=== PATIENT | female | born 1960 | race Caucasian/White ===

== ENCOUNTER 2022-03-29 14:37 | Outpatient (CLI) | payer OTHER | END 2022-03-29 14:38 | disposition home or self-care (01) | LOC: BICMAMMO 14:37 | PROVIDERS: ATTEND Surgery | DX: N63.15 Unspecified lump in the right breast, overlapping quadrants (principal) | CPT/HCPCS: 19083; 77066; G0279 ==

== ENCOUNTER 2022-04-27 09:52 | Day surgery (SDC) | payer OTHER ==
[2022-04-25 16:09] VITALS: BMI 28.4
[2022-04-27] MEDS ORDERED: fentaNYL Citrate/PF 100 MCG/2 ML SYRINGE ONE (10:55)
[2022-04-27] MEDS ORDERED: Isosulfan Blue 50 MG/5 ML VIAL ONE (12:00)
[2022-04-27] MEDS ORDERED: Bupivacaine/Epinephrine 0.25% 30 ML VIAL ONE ×2 (12:00→14:48)
[2022-04-27] MEDS ORDERED: Acetaminophen 500 MG TAB ONE (12:19)
[2022-04-27] MEDS ORDERED: CEFAZOLIN 2 GM VIAL ONE (12:19)
[2022-04-27] MEDS ORDERED: Sodium Chloride 0.9% 100 ML ONE (12:19)
[2022-04-27] MEDS ORDERED: Lidocaine 1% MPF 2 ML VIAL ONE (12:47)
[2022-04-27] MEDS ORDERED: Ondansetron PF 4 MG/2 ML Vial ONE ×2 (12:47→15:41)
[2022-04-27] MEDS ORDERED: Ketorolac Tromethamine 30 MG/ML VIAL ONE (12:47)
[2022-04-27] MEDS ORDERED: ePHEDrine 50 MG/ML VIAL ONE (12:47)
[2022-04-27] MEDS ORDERED: PROPOFOL 200 MG/20 ML VIAL ONE (12:47)
[2022-04-27] MEDS ORDERED: Dexamethasone 20 MG/5 ML VIAL ONE (12:47)
[2022-04-27] MEDS ORDERED: Promethazine HCl 25 MG/ML VIAL ONE (15:56)
[2022-04-27] MEDS ORDERED: Metoclopramide HCl 10 MG/2 ML VIAL ONE (17:10)
== END 2022-04-27 17:27 | disposition home or self-care (01) ==
LOC: SDC 09:52
PROVIDERS: ATTEND Surgery
PROC: 07B50ZX Excision of Right Axillary Lymphatic, Open Approach, Diagnostic (ICD-10-PCS; principal; 2022-04-27)
PROC: 0HBT0ZZ Excision of Right Breast, Open Approach (ICD-10-PCS; principal; 2022-04-27)
DX: C50.811 Malignant neoplasm of overlapping sites of right female breast (principal); E89.0 Postprocedural hypothyroidism; I10 Essential (primary) hypertension; E11.9 Type 2 diabetes mellitus without complications; Z17.0 Estrogen receptor positive status [ER+]; Z79.84 Long term (current) use of oral hypoglycemic drugs; Z79.890 Hormone replacement therapy; Z79.899 Other long term (current) drug therapy
CPT/HCPCS: 76098; 78195; 88307; 88342; A9541; C1776; J0690; J1100; J1885; J2405; J2550; J2704; J2765; J3490; Q9968

== ENCOUNTER 2022-09-26 14:25 | Outpatient (CLI) | payer BC | END 2022-09-26 14:26 | disposition home or self-care (01) | LOC: BICMAMMO 14:25 | PROVIDERS: ATTEND Internal Medicine Hematology & Oncology | DX: Z13.820 Encounter for screening for osteoporosis (principal); C50.811 Malignant neoplasm of overlapping sites of right female breast; T38.6X5A Adverse effect of antigonadotrophins, antiestrogens, antiandrogens, not elsewhere classified, initial encounter | CPT/HCPCS: 77080 ==

== ENCOUNTER 2023-03-29 10:33 | Outpatient (CLI) | payer BC | END 2023-03-29 10:34 | disposition home or self-care (01) | LOC: BICMAMMO 10:33 | PROVIDERS: ATTEND Internal Medicine Hematology & Oncology | DX: Z08 Encounter for follow-up examination after completed treatment for malignant neoplasm (principal); Z85.3 Personal history of malignant neoplasm of breast | CPT/HCPCS: 77066; G0279 ==

== ENCOUNTER 2024-04-23 12:34 | Outpatient (CLI) | payer BC | END 2024-04-23 12:35 | disposition home or self-care (01) | LOC: BICMAMMO 12:34 | PROVIDERS: ATTEND Nurse Practitioner | DX: Z08 Encounter for follow-up examination after completed treatment for malignant neoplasm (principal); Z85.3 Personal history of malignant neoplasm of breast; Z78.0 Asymptomatic menopausal state | CPT/HCPCS: 77066; 77080; G0279 ==

== ENCOUNTER → 2024-07-29 | Outpatient (CLI) | payer BC | LOC: BICRAD 11:11 | PROVIDERS: ATTEND Radiology Radiation Oncology | DX: M18.11 Unilateral primary osteoarthritis of first carpometacarpal joint, right hand (principal); M19.041 Primary osteoarthritis, right hand; M19.031 Primary osteoarthritis, right wrist; M19.042 Primary osteoarthritis, left hand ==

== ENCOUNTER 2024-08-18 09:36 | Emergency (ER) | payer BC ==
[2024-08-18 11:24] LABS: INR-International Normal Ratio 1.1; PTT 39.6 sec (22.9-36.1)
[2024-08-18 11:33] LABS: #Basophils Less than 0.03 10x3/uL (0.0-0.2); %Basophils 0.3 % (0.0-1.0); %Eosinophils 2.8 % (0.0-10.0); %Monocytes 6.5 % (0.0-10.0); %Neutrophils 70.1 % (42.0-75.0); Hematocrit 23.9 % (36.0-47.0); Hemoglobin 6.1 g/dL (12.0-16.0); Mean Corpuscular HGB CONC 25.5 g/dL (32.0-36.0); Mean Corpuscular Hemoglobin 17.2 pg (27.0-31.0); Mean Corpuscular Volume 67.3 fL (78.0-98.0); Mean Platelet Volume 9.5 fL (7.4-10.4); Platelet Count 267 10x3/uL (130-400); RBC Distribution Width 19.5 % (11.5-14.5); Red Blood Cell (RBC) Count 3.55 mill/uL (4.20-5.40)
[2024-08-18 11:54] LABS: Troponin I Less than 0.010 ng/mL (< 0.028)
[2024-08-18 12:10] LABS: Elliptocytes SLIGHT = 2-5 cells HPF (0-1); Hypochromia SLIGHT = 6-15 cells HPF (0-5); Microcytosis MODERATE=15-30 cells HPF (0-5); Platelet Adequacy Comment Platelets Normal; Polychromasia SLIGHT = 2-3 cells HPF (0-2)
[2024-08-18 12:19] LABS: ALT (SGPT) 9 U/L (8-55); AST (SGOT) 26 U/L (5-34); Albumin 3.5 g/dL (3.4-4.8); Alkaline Phosphatase 61 U/L (40-110); Anion Gap 16 mmol/L (10-20); BUN (Urea Nitrogen) 6 mg/dL (9.8-20.1); Bilirubin, Total 0.3 mg/dL (0.2-1.2); Calc. Creatinine Clearance 0 mL/min (70-130); Calcium 8.8 mg/dL (7.8-10.44); Carbon Dioxide 20 mmol/L (23-31); Chloride 107 mmol/L (98-107); Estimated GFR 80; Globulin 3.4 g/dL (2.4-3.5); Glucose 209 mg/dL (80-115); Potassium 3.7 mmol/L (3.5-5.1); Protein, Total 6.9 g/dL (5.8-8.1); Sodium 139 mmol/L (136-145)
== END 2024-08-18 17:54 | disposition home or self-care (01) ==
LOC: ERS 09:36
DX: D50.9 Iron deficiency anemia, unspecified (principal); I10 Essential (primary) hypertension; E11.9 Type 2 diabetes mellitus without complications; Z79.84 Long term (current) use of oral hypoglycemic drugs; Z79.899 Other long term (current) drug therapy
CPT/HCPCS: 36415; 36430; 80053; 84484; 85025; 85610; 85730; 86850; 86900; 86901; 93005; 99284; P9016

== ENCOUNTER 2024-09-29 08:50 | Day surgery (SDC) | payer BC ==
[~2024-09-29 08:50] MED LIST: Acetaminophen 325 MG TAB PO SCH
[2024-09-29] MEDS ORDERED: Acetaminophen 325 MG TAB ONE (10:03)
[2024-09-29] MEDS: Acetaminophen 325 MG TAB PO SCH (10:05)
[2024-09-29 15:15] VITALS: BP 139/66; TEMP 98.4
== END 2024-09-29 15:31 | disposition home or self-care (01) ==
LOC: ONC/OP 08:50
PROVIDERS: ATTEND Internal Medicine Gastroenterology
DX: D64.9 Anemia, unspecified (principal)
CPT/HCPCS: 36430; 86850; 86900; 86901; P9016